=== PATIENT | female | born 1990 | race Caucasian/White ===

== ENCOUNTER 2020-04-08 13:03 | Observation (INO) | payer BC, MEDICAID, SELFPAY ==
--- NOTE | 2020-04-08 13:03 | OBADM ---
This patient, Heidi Ko, admitted to the OB room OB Post 116 for observation. Patient/family oriented to hospital policies and general routines including ID bracelet, bed and alarms, visiting hours, pain management, procedures, bathroom and other care routines, personal items, smoking policy, room service/diet, and visiting hours. Patient/Family are encouraged to report perceived risks to care and to ask questions if they do not understand what they are told or what they should do.
[2020-04-08 14:03] LABS: Add Urine Microscopic? YES; Appearance Urine Clear (Clear); Bacteria Urine Trace /hpf; Bilirubin Urine Negative (Negative); Blood Urine Negative (Negative); Color Urine Yellow (Yellow); Glucose Urine UA Negative (Negative); Ketones Urine Trace mg/dL (Negative); Leukocyte Esterase Ur Negative LEU/UL (NEGATIVE); Mucus Urine Rare /lpf; Nitrate Urine Negative (Negative); Protein Urine Negative (Negative); RBC Urine 0-2 /hpf (0-2); Specific Grav Ur 1.017 (1.001-1.035); Squamous Epithelial Cell Urine Few /hpf (Few); Urobilinogen Urine Negative mg/dL (<2.0); WBC Urine 0-3 /hpf (0-3)
[2020-04-08] MEDS: DEXTROSE 5%/LACTATED RINGERS 1,000 ML 999 ML IV CONT (15:11)
[2020-04-08 16:49] VITALS: BMI 30.6
--- NOTE | 2020-04-09 07:08 | PM.OBTRLD ---
OB - Triage/Final Diagnosis Visit Information Date of evaluation: 04/08/20 Reason for evaluation: threatened labor Evaluation Laboratory results: Laboratory Tests 04/08/20 13:53 Urine Color Yellow Urine Appearance Clear Urine pH 7.0 Ur Specific [place] 1.017 Urine Protein Negative Urine Glucose (UA) Negative Urine Ketones Trace Ur Blood (Man) Negative Urine Nitrate Negative Urine Bilirubin Negative Urine Urobilinogen Negative Ur Leukocyte Esterase Negative Urine RBC 0-2 Urine WBC 0-3 Ur Squamous Epith Cells Few Urine Bacteria Trace Urine Mucus Rare
== END 2020-04-08 16:30 | disposition home or self-care (01) ==
PROVIDERS: Admitting Provider Student in an Organized Health Care Education/Training Program; PCP Internal Medicine; Visit Provider Student in an Organized Health Care Education/Training Program
DX: O47.02 False labor before 37 completed weeks of gestation, second trimester (principal); Z3A.19 19 weeks gestation of pregnancy
CPT/HCPCS: 81001; 87086; 87088; G0378; G0379; J7121

== ENCOUNTER 2020-08-13 10:51 | Inpatient (IN) | payer BC, MEDICAID, SELFPAY ==
[2020-08-13] VITALS (41 sets, daily range): BP systolic 93–120; BP diastolic 54–81; PULSE 50–113; RESP 12–20; TEMP 36.1–36.7; O2SAT 97–100; BMI 34.7
[2020-08-13] MEDS: TERBUTALINE SULFATE 1 MG/ML VIAL 0.25 MG SUB-Q (13:27)
[2020-08-13 15:51] LABS: Basophils Percent Auto 0.3 % (0.2-1.2); Hematocrit 37.4 % (37.0-47.0); Hemoglobin 12.1 g/dL (12.0-15.0); Immature Granulocyte Absolute 0.03 K/mm3 (0.00-0.031); Immature Granulocyte Percent A 0.3 % (0-0.5); Lymphocytes Absolute Auto 0.89 K/mm3 (0.9-3.2); Lymphocytes Percent Auto 7.9 % (18.3-44.2); Mean Corpuscular HGB Conc 32.4 g/dl (32-36); Mean Corpuscular Volume 86.6 fl (80-100); Mean Platelet Volume 11.5 fl (7.4-10.4); Monocytes Absolute Auto 0.5 K/mm3 (0.1-0.6); Monocytes Percent Auto 4.8 % (2.6-8.5); Neutrophils Absolute Auto 9.8 K/mm3 (1.3-6.7); Neutrophils Percent Auto 86.7 % (45.5-73.1); Platelet Count Result 251 k/mm3 (150-375); Red Blood Count 4.32 M/mm3 (4.2-5.4); Red Cell Distribution Width 14.3 % (11.5-14.5); White Blood Count 11.3 K/mm3 (4.5-10.0)
[2020-08-13] MEDS: LACTATED RINGERS 1,000 ML 125 ML IV CONT ×2 (16:14→17:30)
--- NOTE | 2020-08-13 17:33 | WPDANESEPPF ---
Anes - Initial Pre Proc Eval Procedure: Operation Date: 08/13/20 17:30 Proposed Procedures p Section with bilateral Tubal Ligation - Angel Sherman MD Date/Time: 08/13/20 17:33 Surgeon: Angel Sherman MD Pre Op Diagnosis: coontractions Patient Data Age: 29 Gender: F Height: 5 ft 1 in Weight: 83.5 kg Last Vital Signs Temp 36.7 C 08/13/20 16:00 Pulse 100 08/13/20 14:00 BP 120/77 08/13/20 14:00 Allergies Allergy/AdvReac Type Severity Reaction Status Date / Time No Known Allergies Allergy Mild Unverified 02/04/07 22:22 Home Medications Medication Instructions Recorded Confirmed Type PNV cmb#95-ferrous fumarate-FA 1 tablet PO DAILY 08/04/20 08/13/20 History [] Laboratory Tests 08/13/20 08/13/20 08/13/20 15:43 15:43 15:43 WBC 11.3 K/mm3 H K/mm3 (4.5-10.0) RBC 4.32 M/mm3 M/mm3 (4.2-5.4) Hgb 12.1 g/dL g/dL (12.0-15.0) Hct 37.4 % % (37.0-47.0) MCV 86.6 fl fl (80-100) MCH 28.0 pg pg (26-34) MCHC 32.4 g/dl g/dl (32-36) RDW 14.3 % % (11.5-14.5) Plt Count 251 k/mm3 k/mm3 (150-375) MPV 11.5 fl H fl (7.4-10.4) Immature Gran % (Auto) 0.3 % % (0-0.5) Neut % (Auto) 86.7 % H % (45.5-73.1) Lymph % (Auto) 7.9 % L % (18.3-44.2) [place] % (Auto) 4.8 % % (2.6-8.5) Eos % (Auto) 0.0 % % (0-4.4) Baso % (Auto) 0.3 % % (0.2-1.2) Lymph # (Auto) 0.89 K/mm3 L K/mm3 (0.9-3.2) [place] # (Auto) 0.5 K/mm3 K/mm3 (0.1-0.6) Eos # (Auto) 0.0 K/mm3 K/mm3 (0-0.3) Baso # (Auto) 0.0 K/mm3 K/mm3 (0.0-0.1) Abs Immat Gran (auto) 0.03 K/mm3 K/mm3 (0.00-0.031) Absolute Neuts (auto) 9.8 K/mm3 H K/mm3 (1.3-6.7) Absolute Nucleated RBC 0.0 K/mm3 K/mm3 (0.0-0.012) Nucleated RBC % 0.0 % % (0.0-0.2) RPR Pending Blood Type O Positive Antibody Screen Negative Patient hx anesthesia problems: none Family hx anesthesia problems: none PMFSH Family History Family History Father Diabetes mellitus Daughter Down syndrome Social History Social History Smoking status: Never smoker Second hand tobacco smoke exposure: Yes Substance use: never Gender identity (if verbalized by the patient): Female Spiritual care concerns: No Anes - Eval Final PreProcedure Day of Procedure 08/13/20 17:33 Patient weight: obese Heart: regular rate and rhythm Lungs: clear to auscultation Airway: Mallampati scale class II Neurological: alert and oriented ASA classification: II Emergent: no Anesthetic plan: proceed Anesthesia type and monitoring: regional spinal and standard monitoring Informed Consent: The patient's anesthetic plan and its attendant risks and benefits were discussed with the patient/family/POA. Questions were solicited and answers provided to the satisfaction of the patient/family/POA.
--- NOTE | 2020-08-13 17:54 | PM.IMHP ---
H&P: HPI History of Present Illness Date/Time: 08/13/20 17:54 Chief complaint: coontractions Narrative: 29 y/o at 37 1/7 weeks here with contractions. No leakage of fluid. No vaginal bleeding. Three prior deliveries. Desires permanent contraception with tubal ligation. Observed here and tried a dose of terbutaline. Contractions have persisted and are getting more painful. Review of Systems Review of Systems: All systems reviewed & are unremarkable except as noted in HPI and below PMFSH Family History Family History Father Diabetes mellitus Daughter Down syndrome Social History Social History Smoking status: Never smoker Second hand tobacco smoke exposure: Yes Substance use: never Gender identity (if verbalized by the patient): Female Spiritual care concerns: No Meds Home Medications and Allergies Home Medications Medication Instructions Recorded Confirmed Type PNV cmb#95-ferrous fumarate-FA 1 tablet PO DAILY 08/04/20 08/13/20 History [] Allergies Allergy/AdvReac Type Severity Reaction Status Date / Time No Known Allergies Allergy Mild Unverified 02/04/07 22:22 Vital Signs Vital Signs - 24 hr 08/13/20 13:15 08/13/20 13:30 08/13/20 13:45 Temperature Pulse Rate 86 89 113 H Blood Pressure 119/81 112/72 99/54 L 08/13/20 14:00 08/13/20 16:00 Temperature 36.7 C Pulse Rate 100 Blood Pressure 120/77 Exam Const: Orientation/consciousness: patient oriented x3 Other: Well-developed, well-nourished female in no acute distress. Neck: Thyroid: thyroid normal Lymphatic: no lymphadenopathy noted (in neck, axilla or inguinal nodes) Resp: Effort & Inspection: normal respiratory effort Auscultation: clear to auscultation bilaterally Cardio: Rate: regular rate Rhythm: regular rhythm Heart sounds: S1 normal heart sound present and S2 normal heart sound present GI: Other: ABD: Soft, nontender, nondistended gravid. No guarding or rebound tenderness. No hepatosplenomegaly. NST reactive. TOCO: contractions every 2-4 min : General: Yes no CVA tenderness Other: Cervix 1/50/-2 Back/Spine/Pelvis: Back: no CVA tenderness Skin: General skin exam: normal color and no rashes or lesions noted Neuro: General: patient oriented x3 Extrem: Other: Extremities: nontender with no edema Psych: Mental Status: mental status grossly normal Affect: normal affect H&P: Results Labs Labs: Short CBC 08/13/20 Range/Units 15:43 WBC 11.3 H (4.5-10.0) K/mm3 Hgb 12.1 (12.0-15.0) g/dL Hct 37.4 (37.0-47.0) % Plt Count 251 (150-375) k/mm3 Assessment and Plan Assessment and plan (1) Term : Code(s): Z34.90 - Encounter for supervision of normal , unspecified, unspecified trimester Status: Acute (2) Active labor: Status: Acute (3) Unwanted fertility: Code(s): Z30.09 - Encounter for other general counseling and advice on contraception Status: Acute (4) History of delivery: Code(s): Z98.891 - History of uterine scar from previous surgery Status: Acute Assessment and Plan: A: IUP at 37 1/7 weeks with labor, prior , desiring permanent contraception. P: Offered repeat . She understands there are temporary methods of contraception available to her. She understands that there are nonsurgical options as well as surgical options. She understands that tubal ligation will render her permanently sterile. She understands that there is a failure rate associated with tubal ligation, as well as an inherent ectopic gestation risk. Furthermore, she understands risks of surgery to include risks of anesthesia, risks of pain, infection, bleeding, blood products, thromboembolic phenomena and damage to adjacent structures such as bowel, bladder, ureter
[2020-08-13] MEDS: ceFAZolin 2 GM/D5W 50 ML 2 GM/50 ML BAG IVPB (17:57)
--- NOTE | 2020-08-13 18:02 | WPDHPUPDATE1 ---
History and Physical Update Update Date/Time: 08/13/20 18:02 History and Physical has been reviewed, including an updated exam of the patient. There are NO changes in the patient's condition. Risks, benefits, and alternatives have been discussed and questions answered. Patient agrees to proceed with procedure.
--- NOTE | 2020-08-13 19:09 | PM.OBPRVD ---
OB - Delivery Note Procedure Delivery date: 08/13/20 Procedure: Procedures Operation Date: 08/13/20 17:30 <No data on this case meets the specified criteria> Repeat low transverse delivery Bilateral tubal ligation via modified [place] technique Delivery monitor: external FHT and external uterine Route of delivery: Specimen: Yes (cord blood) Quantitative Blood Loss (ml): 420 Anesthesia type: Spinal Disposition: PACU Complications: None Narrative: The patient was taken to the operating room where she was prepared and draped in the usual sterile fashion in dorsal supine position with a leftward tilt. She received cefazolin preoperatively. Spinal anesthesia was found to be adequate. A Pfannenstiel skin incision was made along the previous scar line and was carried through to the underlying layer of the fascia. The fascia was incised in the midline and the incision was extended laterally. The fascia was dissected free of the underlying rectus muscles. The rectus muscles were in the midline. The peritoneum was identified, tented up and entered sharply. The peritoneal incision was extended superiorly and inferiorly with good visualization of the bladder. The bladder blade was placed. The vesicouterine peritoneum was identified, tented up and entered sharply. The incision was extended laterally and the bladder flap was developed. The bladder blade was replaced. The uterus was then incised sharply in a transverse fashion along the lower uterine segment. The incision was extended laterally. The infant's head was delivered atraumatically to the sterile field, followed by the body. The nose and mouth were bulb suctioned. After a delay, the cord was clamped and cut. The infant was handed off the field. Cord blood was collected. The placenta was removed manually and was passed off the field. The uterus was exteriorized and cleared of all clots and debris. The uterine incision was reapproximated using 0 Monocryl in a running, locked fashion. A second layer, imbricating layer of the same suture was placed. Excellent hemostasis resulted as did excellent reapproximation of the normal anatomy. The left fallopian tube was then identified by following it out to the fimbriated end. It was grasped in the midportion with a Erika clamp and a loop of tube was ligated with a free tie of 0 plain gut. The tubal segment was then transected and the specimen was passed off to be sent to pathology. Hemostasis was excellent. Attention was turned to the left fallopian tube which was similarly identified, ligated and transected. Once again, excellent hemostasis resulted. The uterus was returned the abdomen. The pelvis was irrigated copiously with warmed normal saline. The bladder flap was treated with Hemaderm and rigorous hemostasis was assured. The fascial layer was reapproximated using 0 Vicryl in a running fashion. The skin was closed with a running, subcuticular stitch of 4 0 Vicryl. Dermaflex was applied externally. Sponge, lap, needle and instrument counts were correct. The patient was taken to the recovery room in stable condition. The infant went to the nursery in stable condition. I was present and scrubbed the entire procedure. Valatie Baby Date of : 08/13/20 Time of : 18:24 Weeks of gestation at delivery: 37 Infant gender: Male Weight (pounds): 6 Weight (ounces): 7 presentation: vertex Placenta delivery description: Manual Removal and Normal Configuration cord vessel description: 3 Vessels score one minute: 8 score five minutes: 8
--- NOTE | 2020-08-13 19:12 | P.DS_ITS ---
DS: Admitting Diagnosis Admitting Diagnosis Admitting Diagnosis: Contractions DS: Discharge Diagnosis Discharge Diagnosis (1) History of delivery: Code(s): Z98.891 - History of uterine scar from previous surgery Status: Acute (2) Unwanted fertility: Code(s): Z30.09 - Encounter for other general counseling and advice on contraception Status: Acute (3) Active labor: Status: Acute (4) Term : Code(s): Z34.90 - Encounter for supervision of normal , unspecified, unspecified trimester Status: Acute OB - DS: Summary OB Procedures : None OB Procedures Intrapartum: and Tubal ligation OB Procedures: : None Peripartum Data Procedures: Procedures Operation Date: 08/13/20 17:30 <No data on this case meets the specified criteria> Repeat LTCS with bilateral tubal ligation DS: Data Data Completed and Pending Labs on day of discharge: Labs from last 24 hours 08/13/20 08/13/20 08/13/20 15:43 15:43 15:43 WBC 11.3 H RBC 4.32 Hgb 12.1 Hct 37.4 MCV 86.6 MCH 28.0 MCHC 32.4 RDW 14.3 Plt Count 251 MPV 11.5 H Immature Gran % (Auto) 0.3 Neut % (Auto) 86.7 H Lymph % (Auto) 7.9 L [place] % (Auto) 4.8 Eos % (Auto) 0.0 Baso % (Auto) 0.3 Lymph # (Auto) 0.89 L [place] # (Auto) 0.5 Eos # (Auto) 0.0 Baso # (Auto) 0.0 Abs Immat Gran (auto) 0.03 Absolute Neuts (auto) 9.8 H Absolute Nucleated RBC 0.0 Nucleated RBC % 0.0 RPR Pending Blood Type O Positive Antibody Screen Negative Discharge Plan Discharge Attending physician on discharge: Angel Sherman Discharging Clinician: Angel Sherman Patient Disposition: Home, Self-Care Activity: may shower, may drive after 2 weeks and pelvic rest Diet: regular Wound Care Instructions: incision open to air Discharge Instructions: Call or return if temperature above 100.4? F, increased abdominal pain, increased vaginal bleeding or any new problems. Stand Alone Forms: General Discharge Information Follow-up/Referrals: Angel Sherman MD [Physician] - 4 Weeks Discharge Medications: New hydrocodone-acetaminophen [[place]] 5-325 mg tablet 1 - 2 tablet PO Q6H PRN (Reason: pain) Qty: 30 RF: 0 ibuprofen 600 mg tablet 600 mg PO Q6H PRN (Reason: cramps) Qty: 30 RF: 0 No Action PNV cmb#95-ferrous fumarate-FA [] 28 mg iron- 800 mcg Tablet 1 tablet PO DAILY RF: 0 Date of admission: 08/13/20 14:56 Primary Care Provider: Juan R Walton Admitting Provider: Angel Sehrman Attending physician on admission: Angel Sherman Condition: Stable
[2020-08-13] MEDS: OXYTOCIN 30 UNITS/NS 500 ML 30 UNITS/500 ML BAG 125 UNITS IV CONT (19:21)
[2020-08-13] MEDS: diphenhydrAMINE HCl INJ 50 MG/ML VIAL 25 MG IV PUSH (19:31)
--- NOTE | 2020-08-13 21:28 | OBPPTRN ---
Patient transferred to post room #291 via stretcher. Support person present. Oriented to unit, room, information board, rooming in, admission packet and security measures. Patient verbalizes understanding.
[2020-08-13] MEDS: IBUPROFEN 600 MG TABLET PO (23:41)
[2020-08-13] MEDS: ONDANSETRON INJ 4 MG/2 ML VIAL IV PUSH (23:46)
[2020-08-13] MEDS: DEXTROSE 5%/0.45% SOD CHL 1,000 ML 125 ML IV CONT (23:59)
[2020-08-14] VITALS: BP 97/63; PULSE 58; RESP 16; TEMP 36.7; O2SAT 98
[2020-08-14 01:00] VITALS: BP 97/59; PULSE 60; RESP 16; TEMP 36.9; O2SAT 98
[2020-08-14 04:30] VITALS: BP 99/63; PULSE 62; RESP 16; TEMP 36.8; O2SAT 97
[2020-08-14] MEDS: LORATADINE 10 MG TABLET PO (04:33)
[2020-08-14 06:14] LABS: Basophils Percent Auto 0.2 % (0.2-1.2); Hematocrit 31.2 % (37.0-47.0); Hemoglobin 10.1 g/dL (12.0-15.0); Immature Granulocyte Absolute 0.03 K/mm3 (0.00-0.031); Immature Granulocyte Percent A 0.4 % (0-0.5); Lymphocytes Absolute Auto 1.59 K/mm3 (0.9-3.2); Lymphocytes Percent Auto 18.8 % (18.3-44.2); Mean Corpuscular HGB Conc 32.4 g/dl (32-36); Mean Corpuscular Hemoglobin 27.6 pg (26-34); Mean Corpuscular Volume 85.2 fl (80-100); Mean Platelet Volume 11.4 fl (7.4-10.4); Monocytes Absolute Auto 0.5 K/mm3 (0.1-0.6); Monocytes Percent Auto 6.4 % (2.6-8.5); Neutrophils Absolute Auto 6.3 K/mm3 (1.3-6.7); Neutrophils Percent Auto 74.2 % (45.5-73.1); Platelet Count Result 237 k/mm3 (150-375); Red Blood Count 3.66 M/mm3 (4.2-5.4); Red Cell Distribution Width 13.8 % (11.5-14.5); White Blood Count 8.5 K/mm3 (4.5-10.0)
--- NOTE | 2020-08-14 07:08 | WPDANLDPN2 ---
Anes-Prog Note L&D Date/Time: 08/14/20 07:08 Comfortable throughout: section Neuraxial method: epidural Epidural/Spinal procedure site: clean & non-tender Neuro status: Neuro function grossly intact. Cardiovascular status: normal Respiratory status: normal Airway patency: baseline Mental status: baseline Post-Op hydration status: normal Vital Signs: Last Vital Signs Temp 36.8 C 08/14/20 04:30 Pulse 62 08/14/20 04:30 Resp 16 08/14/20 04:30 BP 99/63 L 08/14/20 04:30 Pulse Ox 97 08/14/20 04:30 Pain score (VAS): 3 I/O: Intake & Output 08/13/20 08/13/20 08/14/20 15:59 23:59 07:59 Intake Total 1410 240 Output Total 382 975 Balance 1028 -735 Post-procedural complaints: none Patient feedback: Patient satisfied with anesthetic care.
--- NOTE | 2020-08-14 07:08 | WPDANLDNPN2 ---
Anes-Prog Note L&D-Neuraxial Date/Time: 08/14/20 07:08 Neuraxial medications: epidural PF morphine Opiod-related complaints: none Patient feedback: Patient satisfied with post-operative pain management.
[2020-08-14 07:56] LABS: Rapid Plasma Reagin Non-Reactive (NonReactive)
[2020-08-14 08:40] VITALS: BP 95/59; PULSE 69; RESP 18; TEMP 36.5; O2SAT 98
[2020-08-14] MEDS: IBUPROFEN 600 MG TABLET PO ×2 (08:46→17:46)
[2020-08-14] MEDS: MULTIVIT/MIN/PREN/FOL AC/IRON TABLET 1 TAB PO (08:47)
[2020-08-14] MEDS: DOCUSATE SODIUM 100 MG CAPSULE PO ×2 (08:47→17:45)
[2020-08-14] MEDS: HYDROcodone/acetaminophen (*CRX) 5-325 MG TABLET 1 TAB PO ×2 (11:49→17:46)
--- NOTE | 2020-08-14 12:48 | PM.OBPNVD ---
OB - PN: Subj Subjective Date/time seen: 08/14/20 12:48 Narrative: Pain OK. Tolerating diet. Desires circumcision for son. OB - PN: Obj Data Labs CBC & Chem 7: 08/14/20 05:03 Labs: Laboratory Results - last 24 hr 08/13/20 08/13/20 08/13/20 15:43 15:43 15:43 WBC 11.3 H RBC 4.32 Hgb 12.1 Hct 37.4 MCV 86.6 MCH 28.0 MCHC 32.4 RDW 14.3 Plt Count 251 MPV 11.5 H Immature Gran % (Auto) 0.3 Neut % (Auto) 86.7 H Lymph % (Auto) 7.9 L [place] % (Auto) 4.8 Eos % (Auto) 0.0 Baso % (Auto) 0.3 Lymph # (Auto) 0.89 L [place] # (Auto) 0.5 Eos # (Auto) 0.0 Baso # (Auto) 0.0 Abs Immat Gran (auto) 0.03 Absolute Neuts (auto) 9.8 H Absolute Nucleated RBC 0.0 Nucleated RBC % 0.0 RPR Non-reactive Blood Type O Positive Antibody Screen Negative 08/14/20 05:03 WBC 8.5 RBC 3.66 L Hgb 10.1 L Hct 31.2 L MCV 85.2 MCH 27.6 MCHC 32.4 RDW 13.8 Plt Count 237 MPV 11.4 H Immature Gran % (Auto) 0.4 Neut % (Auto) 74.2 H Lymph % (Auto) 18.8 [place] % (Auto) 6.4 Eos % (Auto) 0.0 Baso % (Auto) 0.2 Lymph # (Auto) 1.59 [place] # (Auto) 0.5 Eos # (Auto) 0.0 Baso # (Auto) 0.0 Abs Immat Gran (auto) 0.03 Absolute Neuts (auto) 6.3 Absolute Nucleated RBC 0.0 Nucleated RBC % 0.0 RPR Blood Type Antibody Screen OB - PN A/P Plan Comments: A: POD#1, doing well. P: Routine care. Reviewed circ. Exam Narrative: Exam Narrative: AVSS I/O OK ABD soft, nontender, fundus firm. Incision c/d/i. EXT nontender
[2020-08-14 13:00] VITALS: BP 107/63; PULSE 63; RESP 16; TEMP 36.9; O2SAT 98
[2020-08-15] VITALS: BP 98/61; PULSE 65; RESP 16; TEMP 36.8
[2020-08-15] MEDS: HYDROcodone/acetaminophen (*CRX) 5-325 MG TABLET 1 TAB PO ×3 (01:40→08:50)
[2020-08-15] MEDS: IBUPROFEN 600 MG TABLET PO ×2 (01:40→08:50)
[2020-08-15 07:30] VITALS: BP 105/68; PULSE 61; RESP 18; TEMP 36.7; O2SAT 99
--- NOTE | 2020-08-15 08:45 | PM.OBPNVD ---
OB - PN: Subj Subjective Date/time seen: 08/15/20 08:45 Narrative: Pain OK. Tolerating diet. Would like to go home. OB - PN: Obj Data Labs CBC & Chem 7: 08/14/20 05:03 OB - PN A/P Plan Comments: A: POD#2, doing well. P: Home to f/u 4 weeks. Exam Narrative: Exam Narrative: AVSS ABD soft, nontender, fundus firm. Incision c/d/i. EXT nontender
[2020-08-15] MEDS: MULTIVIT/MIN/PREN/FOL AC/IRON TABLET 1 TAB PO (08:51)
[2020-08-15] MEDS: DOCUSATE SODIUM 100 MG CAPSULE PO (08:51)
[2020-08-15 09:00] VITALS: PULSE 61; RESP 18; O2SAT 99
[2020-08-15] MEDS: TETANUS,DIPHTHERIA,AC PERTUSSIS ADULT (0.5 ML) BOOSTRIX IM (10:45)
[2020-08-16 12:12] VITALS: BP 107/69; PULSE 54; RESP 20; TEMP 36.9; O2SAT 100
== END 2020-08-15 12:25 | disposition home or self-care (01) | DRG 785 ==
LOC: ANHOBPP 19:14 → ANHNUR2 22:42 → ANHOB2 23:29
PROVIDERS: Admitting Provider Obstetrics & Gynecology; PCP Internal Medicine; Visit Provider Obstetrics & Gynecology
PROC: 10D00Z1 Extraction of Products of Conception, Low, Open Approach (ICD-10-PCS; CPT 59514; principal; 2020-08-13 17:30)
DX: O34.211 Maternal care for low transverse scar from previous cesarean delivery (principal); Z30.2 Encounter for sterilization; Z3A.37 37 weeks gestation of pregnancy; Z37.0 Single live birth; Z23 Encounter for immunization
CPT/HCPCS: 36415; 85025; 86592; 86850; 86900; 86901; 88302; 90471; 90653; 90715; A9270; G0008; J0131; J0690; J1200; J2274; J2370; J2405; J2590; J3105; J7120

== ENCOUNTER 2023-12-13 21:51 | Emergency (ER) | payer BC, SELFPAY ==
--- NOTE | ~2023-12-13 | CT_ITS ---
Noncontrast CT scan of the cervical spine Technique: Multiple contiguous axial [address] images of the cervical spine were obtained and rec onstructed in 2D sagittal and coronal planes on the acquisition scanner. Dose reduction technique was used on this scan by utilizing automated exposure control, adjustment of the mA and/or kV according to patient size. The dose-length product (DLP) was 304.88 mGy-cm. Clinical History: Pain Findings: No fractures or dislocations. There are probable central disc bulges at C3-C4, C4-C5, C5-C 6, with canal stenosis at these levels. No prevertebral soft tissue swelling. Impression: No fracture or subluxation of the cervical spine. Degenerative change, as above. Reviewed, dictated and finalized at location . Impression: No fracture or subluxation of the cervical spine. Degenerative change, as above.
--- NOTE | ~2023-12-13 | CT_ITS ---
Non-contrast Head CT History: Head injury Technique: Axial non-contrast imaging of the brain was performed. Dose reduction technique was used on this scan by utilizing automated exposure control and iterative reconstruction technique. The dose -length product (DLP) was 605.33 mGy-cm. Findings: There is no evidence of intracranial hemorrhage, mass lesion, or acute infarct. Brain par enchyma appears normal. The ventricles and subarachnoid spaces are normal in size. The calvarium ap pears normal. The visualized paranasal sinuses and mastoid air cells are clear. Impression: No significant abnormality seen. Reviewed, dictated and finalized at location . Impression: No significant abnormality seen.
--- NOTE | ~2023-12-13 | XR_ITS ---
Right Shoulder Technique: AP and scapular Y views were obtained. Clinical History: Trauma Findings: No fracture or dislocation is seen. Osseous alignment is anatomic. The glenohumeral and acr omioclavicular joint spaces are preserved. Soft tissues are unremarkable. Impression: Unremarkable right shoulder radiographs. Reviewed, dictated and finalized at [facility]. Impression: Unremarkable right shoulder radiographs.
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
[2023-12-13 23:36] VITALS: BP 125/93; PULSE 108; RESP 22; TEMP 37; O2SAT 98
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
--- NOTE | 2023-12-14 00:55 | PC.NURSE ---
Ccollar removed per ERP order p c spine is cleared.
[2023-12-14] MEDS: HYDROcodone/acetaminophen (*CRX) 5-325 MG TABLET 1 TAB PO (01:16)
[2023-12-14 01:46] VITALS: BP 126/89; PULSE 85; RESP 18; TEMP 36.6; O2SAT 99
== END 2023-12-14 01:46 | disposition home or self-care (01) ==
PROVIDERS: Emergency Provider Emergency Medicine; PCP Internal Medicine
DX: S09.90XA Unspecified injury of head, initial encounter (principal); S40.011A Contusion of right shoulder, initial encounter; S01.01XA Laceration without foreign body of scalp, initial encounter; V89.2XXA Person injured in unspecified motor-vehicle accident, traffic, initial encounter
CPT/HCPCS: 12001; 70450; 72125; 73030; 99284; A4565; A9270; L0150